=== PATIENT | female | born 1945 | race Caucasian/White ===

== ENCOUNTER 2017-09-19 15:16 | Emergency (ER) | payer MEDICARE ==
[~2017-09-19] VITALS: Ht 167.6 cm; Wt 54.4 kg
[~2017-09-19 15:16] MED LIST: ALBU90OI61 INH; ATOR10 PO; CALPHO600; Cleocin HCl300 MG PO; DOCCAL240 PO; Flovent 220 Ora12 GM INH; GABA300 PO; Humalog Mi100 UNIT/4 SC; K-Dur20 MEQ PO; LEVFLO500; METR500 PO; MIRT30 PO; MULVITMINF; Norco 5-325 Ta1 EACH PO; PRED20 PO; RXTRAM50 PO; STIOLTO RESPIMAT4 GM INH; SULTRIDS PO; TOUJEO SOL300 UNIT/1 SC; [UNRECOGNIZED DRUG - OTHER]
[2017-09-19] MEDS ORDERED: NAPR220 PO (15:30)
[2017-09-19 16:37] LABS: Hematocrit 46.6 % (33.0-51.0); Hemoglobin 16.3 g/dL (11.5-16.0); Mean Corpuscular HGB 32.9 pg (26.0-34.0); Platelet Count 247 K/mm3 (150-400); RDW Coefficient Variation 11.5 % (11.7-14.2); RDW Standard Deviation 39.7 fL (35.1-46.3); Red Blood Cell Count 4.96 M/mm3 (3.80-5.20); White Blood Cell Count 7.61 K/mm3 (4.00-11.30)
[2017-09-19 16:38] LABS: Mean Corpuscular Volume 94 fL (80-100)
[2017-09-19 16:58] LABS: BASOPHILS ABSOLUTE MAN 0.07 K/mm3 (0.00-0.23); BASOPHILS PERCENT MAN 1 % (0-2); EOSINOPHILS PERCENT MAN 0 % (0-6); LYMPHOCYTES % ATYPICAL MANUAL 4 % (0-0); LYMPHOCYTES ABSOLUTE MAN 1.59 K/mm3 (0.84-5.20); LYMPHOCYTES PERCENT MAN 17 % (21-46); MONOCYTES PERCENT MAN 4 % (4-13); NEUTROPHILS ABSOLUTE MAN 5.63 K/mm3 (1.96-9.15); SEG NEUTROPHILS PERCENT MAN 74 % (41-73); TOTAL CELLS COUNTED 100
[2017-09-19 17:07] LABS: Alanine Aminotransfer (ALT/SGP 17 U/L (12-78); Albumin, Blood 3.8 g/dL (3.4-5.0); Albumin/Globulin Ratio 1.3 (0.8-1.8); Alk Phos 88 U/L (50-136); Anion Gap 7 mmol/L (6-16); Aspartate Aminotrans (AST/SGOT 11 U/L (12-37); Bilirubin, Total 0.7 mg/dL (0.1-1.0); Blood Urea Nitrogen 13 mg/dL (8-24); Bun/Creatinine Ratio 20.5 (12.0-20.0); CO2, Blood 27 mmol/L (21-32); Calcium, Blood 8.9 mg/dL (8.5-10.1); Chloride, Blood 100 mmol/L (98-108); Creatinine, Blood 0.63 mg/dL (0.40-1.00); Glomerular Filtration Rate >60 (60-); Glucose, Blood 380 mg/dL (70-99); Potassium, Blood 4.1 mmol/L (3.5-5.5); Sodium, Blood 134 mmol/L (136-145); Total Protein, Blood 6.8 g/dL (6.4-8.2)
[2017-09-19] MEDS ORDERED: Norco 5-325 Ta1 EACH PO (18:15)
[2018-07-13] MEDS ORDERED: Norco 5-325 Ta1 EACH PO (04:10)
[2018-07-18] MEDS ORDERED: HYDR1TAB94 PO (15:11)
[2018-07-18] MEDS ORDERED: Omeprazole20 M1 PO (15:13)
[2018-07-18] MEDS ORDERED: ONDA4ODT MM (15:13)
== END 2017-09-19 18:29 | disposition home or self-care (01) ==
LOC: ER 15:16
PROVIDERS: Emergency Medicine
DX: M41.9 Scoliosis, unspecified (principal); T50.905A Adverse effect of unspecified drugs, medicaments and biological substances, initial encounter; E11.9 Type 2 diabetes mellitus without complications; M79.1 Myalgia; E78.5 Hyperlipidemia, unspecified; Z87.01 Personal history of pneumonia (recurrent); F17.210 Nicotine dependence, cigarettes, uncomplicated
CPT/HCPCS: 71046; 80053; 83735; 85007; 85027; 93005; 93010; 96361; 96374; 96375; 99283; J1170; J1885; J2405; J7030

== ENCOUNTER 2017-12-15 13:03 | Emergency (ER) | payer MEDICARE ==
[~2017-12-15] VITALS: Ht 170.2 cm; Wt 59.4 kg
[~2017-12-15 13:03] MED LIST changes: +Humalog Mi100 UNIT/4; -Humalog Mi100 UNIT/4 SC; +NAPR220 PO; +TOUJEO SOL300 UNIT/1; -TOUJEO SOL300 UNIT/1 SC
[2017-12-15] MEDS ORDERED: CYCL10 PO (14:20)
== END 2017-12-15 14:43 | disposition home or self-care (01) ==
LOC: ER 13:03
DX: M54.31 Sciatica, right side (principal); M62.838 Other muscle spasm; E11.9 Type 2 diabetes mellitus without complications; F17.210 Nicotine dependence, cigarettes, uncomplicated; Z79.4 Long term (current) use of insulin
CPT/HCPCS: 96372; 99283; J1885

== ENCOUNTER → 2017-12-23 | Outpatient (CLI) | payer MEDICARE ==
[~2017-12-23] MED LIST changes: +CYCL10 PO; +Norco 10-325 T1 EACH PO
== END | disposition home or self-care (01) ==
LOC: LAB EV 13:56 → LAB SHORT 13:56
DX: N39.0 Urinary tract infection, site not specified (principal)
CPT/HCPCS: 87086; 87147

== ENCOUNTER 2017-12-26 00:15 | Emergency (ER) | payer MEDICARE ==
[~2017-12-26] VITALS: Ht 167.6 cm; Wt 54.4 kg
[~2017-12-26 00:15] MED LIST changes: -Norco 10-325 T1 EACH PO
[2017-12-27] MEDS ORDERED: Norco 10-325 T1 EACH PO (15:56)
== END 2017-12-26 01:58 | disposition home or self-care (01) ==
LOC: ER 00:15
DX: S20.212A Contusion of left front wall of thorax, initial encounter (principal); W01.198A Fall on same level from slipping, tripping and stumbling with subsequent striking against other object, initial encounter; Z79.4 Long term (current) use of insulin; Z79.899 Other long term (current) drug therapy; E11.9 Type 2 diabetes mellitus without complications; F17.210 Nicotine dependence, cigarettes, uncomplicated
CPT/HCPCS: 99282

== ENCOUNTER 2017-12-27 15:04 | Emergency (ER) | payer MEDICARE ==
[~2017-12-27] VITALS: Ht 167.6 cm; Wt 5.9 kg
[2017-12-27] MEDS ORDERED: Norco 10-325 T1 EACH PO (15:56)
== END 2017-12-27 16:37 | disposition home or self-care (01) ==
LOC: ER 15:04
DX: S20.212A Contusion of left front wall of thorax, initial encounter (principal); W19.XXXA Unspecified fall, initial encounter; Z79.4 Long term (current) use of insulin; Z79.899 Other long term (current) drug therapy; E11.9 Type 2 diabetes mellitus without complications; F17.210 Nicotine dependence, cigarettes, uncomplicated
CPT/HCPCS: 99283

== ENCOUNTER → 2018-07-17 | Outpatient (CLI) | payer MEDICARE ==
[~2018-07-17] MED LIST changes: +HYDR1TAB94 PO; -Humalog Mi100 UNIT/4; +Humalog Mi100 UNIT/4 SC; +Norco 10-325 T1 EACH PO; +ONDA4ODT MM; +Omeprazole20 M1 PO; -TOUJEO SOL300 UNIT/1; +TOUJEO SOL300 UNIT/1 SC
[2018-07-17 17:31] LABS: BASOPHILS ABSOLUTE AUTO 0.01 K/mm3 (0.00-0.23); BASOPHILS PERCENT AUTO 0 % (0-2); EOSINOPHILS ABSOLUTE AUTO 0.04 K/mm3 (0.00-0.68); EOSINOPHILS PERCENT AUTO 1 % (0-6); Hematocrit 44.6 % (33.0-51.0); IMMATURE GRAN ABSOLUTE AUTO 0.06 K/mm3 (0.00-0.10); IMMATURE GRAN PERCENT AUTO 1 % (0-1); LYMPHOCYTES ABSOLUTE AUTO 1.45 K/mm3 (0.84-5.20); LYMPHOCYTES PERCENT AUTO 26 % (21-46); MONOCYTES ABSOLUTE AUTO 0.82 K/mm3 (0.16-1.47); MONOCYTES PERCENT AUTO 15 % (4-13); Mean Corpuscular HGB 33.4 pg (26.0-34.0); Mean Corpuscular HGB Conc 35.9 g/dL (31.5-36.5); Mean Platelet Volume 12.6 fL (9.1-12.4); NEUTROPHILS ABSOLUTE AUTO 3.16 K/mm3 (1.96-9.15); NEUTROPHILS PERCENT AUTO 57 % (41-73); Platelet Count 128 K/mm3 (150-400); RDW Coefficient Variation 11.9 % (11.7-14.2); RDW Standard Deviation 41.1 fL (35.1-46.3); Red Blood Cell Count 4.79 M/mm3 (3.80-5.20); White Blood Cell Count 5.54 K/mm3 (4.00-11.30)
[2018-07-17 17:32] LABS: Mean Corpuscular Volume 93 fL (80-100)
[2018-07-17 17:38] LABS: Bun/Creatinine Ratio 21.8 (12.0-20.0); Calcium, Blood 9.1 mg/dL (8.5-10.1); Creatinine, Blood 1.33 mg/dL (0.40-1.00)
== END | disposition home or self-care (01) ==
LOC: LAB SHORT 17:26 → LAB EV 17:26
PROVIDERS: Emergency Medicine
DX: R11.2 Nausea with vomiting, unspecified (principal)
CPT/HCPCS: 80048; 85025

== ENCOUNTER 2018-08-12 08:30 | Emergency (ER) | payer MEDICARE ==
[~2018-08-12] VITALS: Ht 167.6 cm; Wt 55.3 kg
[2018-08-12 09:00] LABS: BASOPHILS ABSOLUTE AUTO 0.05 K/mm3 (0.00-0.23); BASOPHILS PERCENT AUTO 1 % (0-2); EOSINOPHILS ABSOLUTE AUTO 0.16 K/mm3 (0.00-0.68); EOSINOPHILS PERCENT AUTO 2 % (0-6); Hematocrit 47.5 % (33.0-51.0); Hemoglobin 15.8 g/dL (11.5-16.0); IMMATURE GRAN ABSOLUTE AUTO 0.03 K/mm3 (0.00-0.10); IMMATURE GRAN PERCENT AUTO 0 % (0-1); LYMPHOCYTES PERCENT AUTO 23 % (21-46); MONOCYTES ABSOLUTE AUTO 0.66 K/mm3 (0.16-1.47); MONOCYTES PERCENT AUTO 9 % (4-13); Mean Corpuscular HGB 32.7 pg (26.0-34.0); Mean Corpuscular HGB Conc 33.3 g/dL (31.5-36.5); Mean Corpuscular Volume 98 fL (80-100); Mean Platelet Volume 11.5 fL (9.1-12.4); NEUTROPHILS ABSOLUTE AUTO 4.76 K/mm3 (1.96-9.15); NEUTROPHILS PERCENT AUTO 65 % (41-73); Platelet Count 184 K/mm3 (150-400); RDW Coefficient Variation 11.9 % (11.7-14.2); RDW Standard Deviation 43.1 fL (35.1-46.3); Red Blood Cell Count 4.83 M/mm3 (3.80-5.20); White Blood Cell Count 7.36 K/mm3 (4.00-11.30)
[2018-08-12 09:12] LABS: Alanine Aminotransfer (ALT/SGP 18 U/L (12-78); Albumin, Blood 3.8 g/dL (3.4-5.0); Albumin/Globulin Ratio 1.1 (0.8-1.8); Alk Phos 91 U/L (50-136); Anion Gap 8 mmol/L (6-16); Aspartate Aminotrans (AST/SGOT 16 U/L (12-37); Bilirubin, Total 0.6 mg/dL (0.1-1.0); Blood Urea Nitrogen 19 mg/dL (8-24); Bun/Creatinine Ratio 31.2 (12.0-20.0); CO2, Blood 27 mmol/L (21-32); Calcium, Blood 8.8 mg/dL (8.5-10.1); Chloride, Blood 104 mmol/L (98-108); Creatinine, Blood 0.61 mg/dL (0.40-1.00); Globulin, Blood 3.4 g/dL (2.2-4.0); Glomerular Filtration Rate >60 (60-); Glucose, Blood 274 mg/dL (70-99); Potassium, Blood 4.1 mmol/L (3.5-5.5); Sodium, Blood 139 mmol/L (136-145); Total Protein, Blood 7.2 g/dL (6.4-8.2)
[2018-08-12 11:21] LABS: Source, Urine Clean Catch
[2018-08-12 11:24] LABS: Appearance, Urine Clear (Clear); Bilirubin, Urine Neg (Neg); Blood, Urine Neg (Neg); Color, Urine Yellow (P-Yellow); Glucose Qualitative, Urine 4+ (Neg); Ketones, Urine 2+ (Neg); Leukocyte Esterase, Urine 1+ (Neg); Nitrite, Urine Neg (Neg); Protein, Urine Neg (Neg); Specific Gravity, Urine 1.015 (1.003-1.022); Urobilinogen, Urine NORM (Normal); pH, Urine 6.5 (5.0-8.0)
[2018-08-12 11:47] LABS: White Blood Cells, Urine 0-2 /hpf (0-5)
[2018-08-12 11:48] LABS: Bacteria Not Seen /hpf; Red Blood Cells, Urine Not Seen /hpf (0-2); Squamous Epithelial Cells Mod /hpf (Few)
== END 2018-08-12 12:45 | disposition home or self-care (01) ==
LOC: ER 08:30
PROVIDERS: Physician Assistant
DX: K59.00 Constipation, unspecified (principal); E11.9 Type 2 diabetes mellitus without complications; F17.210 Nicotine dependence, cigarettes, uncomplicated; Z90.710 Acquired absence of both cervix and uterus
CPT/HCPCS: 36415; 74176; 80053; 81001; 83690; 85025; 87086; 96361; 96374; 96375; 99284-25; J1170; J2405; J7120

== ENCOUNTER → 2019-12-04 | Outpatient (CLI) | payer MEDICARE | END | disposition home or self-care (01) | LOC: LAB SHORT 09:45 → LAB EV 09:45 | DX: R30.0 Dysuria (principal) | CPT/HCPCS: 87077; 87086; 87186 ==

== ENCOUNTER 2020-01-31 17:14 | Inpatient (IN) | payer MEDICARE ==
[~2020-01-31] VITALS: Ht 170.2 cm; Wt 50.3 kg
[~2020-01-31 17:14] MED LIST changes: -ATOR20 PO; -Aspir 8181 MG PO; -DEXA4 PO; -Hydrocodone-Ap1 EA23 PO; -INSULIN LI100 UNIT/6 SC; -NITR.4SL SL; -Revlimid10 MG PO; -TOUJEO SOL300 UNIT/2 SC
[2020-01-31 18:06] LABS: International Normalized Ratio 0.95; Prothrombin Time Results 10.2 Sec (9.7-11.5)
[2020-01-31 18:08] LABS: Magnesium, Blood 1.8 mg/dL (1.6-2.4); Phosphorus, Blood 2.4 mg/dL (2.5-4.9)
[2020-01-31] MEDS ORDERED: Revlimid10 MG PO (18:09)
[2020-01-31] MEDS ORDERED: INSULIN LI100 UNIT/6 SC (18:11)
[2020-01-31] MEDS ORDERED: DEXA4 PO (18:30)
[2020-01-31] MEDS ORDERED: NAPR220 PO (18:31)
[2020-01-31] MEDS ORDERED: TOUJEO SOL300 UNIT/2 SC (18:37)
--- NOTE | 2020-01-31 21:10 | NUR ---
ASSUMED CARE RECEIEVED REPORT FROM DEMOLITION EXPERT. PT IS ALERT AND ORIENTED X 4, AND DENIES CP, SOB, AND NAUSEA. STABLE VITALS. SHE IS ON TELLY, SINUS RHYTHM. BED LOW AND LOCKED. CALL LIGHT WITHIN REACH.
--- NOTE | 2020-02-01 00:28 | NUR ---
UPDATE PT CONTINUES TO DENY CP, SOB, AND NAUSEA. HER ONLY COMPLAINT IS A THROBBING/ACHING PAIN IN HER LEFT THIGH. SHE STATES SHE GETS THIS AT HOME AFTER NOT MOVING FOR PERIODS OF TIME, SHE SAYS ITS "BONE PAIN" THAT USUALLY GETS BETTER WHEN SHE STANDS UP. I GAVE HER TYLENOL AND HAD HER STAND UP WITH THE WALKER, SHES A LITTLE WEAK BUT FAIRLY STEADY - SHE STATES SOME RELIEF.
[2020-02-01 02:02] LABS: BASOPHILS ABSOLUTE AUTO 0.04 K/mm3 (0.00-0.23); BASOPHILS PERCENT AUTO 1 % (0-2); EOSINOPHILS ABSOLUTE AUTO 0.18 K/mm3 (0.00-0.68); EOSINOPHILS PERCENT AUTO 5 % (0-6); Hematocrit 32.3 % (33.0-51.0); IMMATURE GRAN ABSOLUTE AUTO 0.02 K/mm3 (0.00-0.10); IMMATURE GRAN PERCENT AUTO 1 % (0-1); LYMPHOCYTES ABSOLUTE AUTO 1.65 K/mm3 (0.84-5.20); LYMPHOCYTES PERCENT AUTO 42 % (21-46); MONOCYTES ABSOLUTE AUTO 0.49 K/mm3 (0.16-1.47); MONOCYTES PERCENT AUTO 13 % (4-13); Mean Corpuscular HGB 35.7 pg (26.0-34.0); Mean Corpuscular HGB Conc 34.1 g/dL (31.5-36.5); NEUTROPHILS ABSOLUTE AUTO 1.54 K/mm3 (1.96-9.15); NEUTROPHILS PERCENT AUTO 39 % (41-73); Platelet Count 128 K/mm3 (150-400); RDW Coefficient Variation 13.7 % (11.7-14.2); RDW Standard Deviation 52.2 fL (35.1-46.3); Red Blood Cell Count 3.08 M/mm3 (3.80-5.20); White Blood Cell Count 3.92 K/mm3 (4.00-11.30)
[2020-02-01 02:05] LABS: Mean Corpuscular Volume 105 fL (80-100)
[2020-02-01 02:22] LABS: Anion Gap 5 mmol/L (6-16); Blood Urea Nitrogen 19 mg/dL (8-24); Bun/Creatinine Ratio 26.5 (12.0-20.0); CO2, Blood 29 mmol/L (21-32); Calcium, Blood 7.8 mg/dL (8.5-10.1); Chloride, Blood 101 mmol/L (98-108); Creatinine, Blood 0.72 mg/dL (0.40-1.00); Glomerular Filtration Rate >60 (60-); Glucose, Blood 341 mg/dL (70-99); Phosphorus, Blood 4.3 mg/dL (2.5-4.9); Potassium, Blood 3.7 mmol/L (3.5-5.5); Sodium, Blood 135 mmol/L (136-145)
--- NOTE | 2020-02-01 05:30 | NUR ---
SHIFT SUMMARY NO ACUTE EVENTS OVERNIGHT. PT REMAINS ALERT AND ORIENTED X 4. SHE CONTINUES TO DENY CP, SOB AND NAUSEA WHEN AWAKE. VITALS ARE STABLE, AND SHE REMAINS IN SINUS RHYTHM. HER TROPONIN BUMPED UP A TINY BIT MORE WITH 1.71. SHE HAS BEEN NPO SINCE MIDNIGHT - AWAITING CARDIO CONSULT AND POTENTIALLY POLICY CHANGE CLERKS SUPERVISOR PROCEDURE THIS MORNING/DAY. SHE HAS BEEN COMPLAINING OF AN ACHE IN HER LEFT THIGH. SHE STATES THAT SHE GETS THIS PAIN AT HOME AND SHE WILL STAND UP TO RELIEVE IT. I GOT HER UP AND GAVE HER TYLENOL WHICH HELPED. SHE IS CURRENTLY ON A HEPERAIN GTTP INFUSING AT 15 UNITS/KG/HR (TITRATED UP PER PHARMACY OVERNIGHT) WITH A DOSING WEIGHT OF 49 KG. SHE IS ALSO ON NS @ 100 ML/HR AFTER HER SODIUM PHOS FINISHED INFUSING. BED LOW AND LOCKED. CALL LIGHT WITHIN REACH. ADMIT IS COMPLETED, MEDS ARE COMPLETED - HER CHEMO MED HAS BEEN VERIFIED BY PHARMACY AND IS IN THE CABINET NEAR HER ROOM.
--- NOTE | 2020-02-01 06:02 | NUR ---
CBG/INSULIN SLIDING SCALE PT HAS ORDERS FOR Q6H CBG CHECKS, BUT THE INSULIN SLIDING SCALE WAS AC & HS, SO I WENT AHEAD AND CHANGED MIKE SLIDING SCALE TO Q6H FOR NOW, DUE TO PT STILL BEING NPO. THIS CAN CHANGE ALONG WITH THE FREQUENCY OF CBG CHECKS TO AC & HS WHEN PT IS PUT ON A DIET.
--- NOTE | 2020-02-01 17:21 | NUR ---
PCU DAYSHIFT SUMMARY PATIENT ALERT AND ORIENTED X4 T/O SHIFT. PATIENT RESTFUL AND INDEPENDENT/MINIMAL STANDBY ASSIST IN ROOM. PATIENT REMAINS ON OXYMIZER AT 3.5 LPM. LUNG SOUNDS COURSE T/O, RESPIRATIONS E/U AT REST - LABORED AND UNEVEN - PATIENT USES PIERCED LIP BREATHING FOR RECOVERY. PATIENT DOSE TAKE HIS OXYGEN OFF TO EAT AND PERIODICALLY T/O DAY - PATIENT EDUCATED TO HYPOXIA AND SOB - VERBALIZED THAT HE 'IS FINE'. PATIENT USES OXYGEN AT HOME, HAS HOME CONCENTRATOR AND PORTABLE OXYGEN TANK (PULSE). NO ACUTE CHANGES NOTED THIS SHIFT. PATIENT IS PALE, WEAK AND REMAINS IN PCU AWAITING ONCOLOGY CONSULT FOR MONDAY WITH MD MURRAY WHO IS OUT OF TOWN UNTIL MONDAY. PATIENT REMAINS IN AFIB - RATE 90-120'S. WILL CONTINUE TO MONITOR AND REPORT TO NOC SHIFT RN.
--- NOTE | 2020-02-01 17:30 | NUR ---
PCU DAYSHIFT SUMMARY PATIENT ALERT AND ORIENTED TO SELF, LOCATION AND TIME/DATE. 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 RESP E/U ON ROOM AIR. PATIENT REMAINS IN NSR. PATIENT DENIES ANY CHEST PAIN. MEDICATED FOR CHRONIC ONGOING PAIN. HEPARIN GTT RUNNING PER EMAR - BOLUS DOSE GIVEN X2 WITH TITRATION THIS SHIFT. PATIENT HAS AC HS CBG'S - TREATED PER SLIDING SCALE. MD AHUMADA TO ROOM - PATIENT VERBALIZES THAT SHE IS UNSURE IF SHE WOULD LIKE ANY CARDIAC INTERVENTION AND DOES NOT WANT TO MAKE A DECISION AT THIS TIME - SHE JUST WANTED TO EAT - MD AHUMADA SAID HE WOULD BE BACK TO [facility] IN AM. PATIENT DNR, PURPLE WRISTBAND IN PLACE. WILL CONTINUE TO MONITOR AND REPORT TO NOC SHIFT RN.
--- NOTE | 2020-02-02 05:15 | NUR ---
SHIFT SUMMARY PATIENT SLEPT WELL THROUGH NIGHT. ADJUSTED HEPARIN DRIP PER PHARMACY, SEE EMAR. GAVE PAIN MEDS FOR NEUROPATHIC PAIN, SEE EMAR. NO ACUTE CHANGES OVERNIGHT. ASSESSMENT IS CHARTED. VSS. PAIN WELL CONTROLLED. WILL CONTINUE TO MONITOR.
[2020-02-02 10:22] LABS: BASOPHILS ABSOLUTE AUTO 0.06 K/mm3 (0.00-0.23); BASOPHILS PERCENT AUTO 2 % (0-2); EOSINOPHILS ABSOLUTE AUTO 0.19 K/mm3 (0.00-0.68); EOSINOPHILS PERCENT AUTO 6 % (0-6); Hematocrit 32.2 % (33.0-51.0); Hemoglobin 10.7 g/dL (11.5-16.0); IMMATURE GRAN ABSOLUTE AUTO 0.01 K/mm3 (0.00-0.10); IMMATURE GRAN PERCENT AUTO 0 % (0-1); LYMPHOCYTES PERCENT AUTO 50 % (21-46); MONOCYTES ABSOLUTE AUTO 0.43 K/mm3 (0.16-1.47); MONOCYTES PERCENT AUTO 13 % (4-13); Mean Corpuscular HGB 36.1 pg (26.0-34.0); Mean Corpuscular HGB Conc 33.2 g/dL (31.5-36.5); Mean Platelet Volume 11.6 fL (9.1-12.4); NEUTROPHILS ABSOLUTE AUTO 1.03 K/mm3 (1.96-9.15); NEUTROPHILS PERCENT AUTO 30 % (41-73); Platelet Count 138 K/mm3 (150-400); RDW Standard Deviation 54.8 fL (35.1-46.3); Red Blood Cell Count 2.96 M/mm3 (3.80-5.20); White Blood Cell Count 3.42 K/mm3 (4.00-11.30)
[2020-02-02 10:29] LABS: Mean Corpuscular Volume 109 fL (80-100)
[2020-02-02 10:35] LABS: Alanine Aminotransfer (ALT/SGP 22 U/L (12-78); Albumin, Blood 2.2 g/dL (3.4-5.0); Albumin/Globulin Ratio 0.5 (0.8-1.8); Alk Phos 57 U/L (50-136); Anion Gap 6 mmol/L (6-16); Aspartate Aminotrans (AST/SGOT 17 U/L (12-37); Bilirubin, Total 0.3 mg/dL (0.1-1.0); Blood Urea Nitrogen 16 mg/dL (8-24); Bun/Creatinine Ratio 24.9 (12.0-20.0); CO2, Blood 26 mmol/L (21-32); Calcium, Blood 8.2 mg/dL (8.5-10.1); Chloride, Blood 106 mmol/L (98-108); Creatinine, Blood 0.64 mg/dL (0.40-1.00); Globulin, Blood 4.3 g/dL (2.2-4.0); Glomerular Filtration Rate >60 (60-); Glucose, Blood 156 mg/dL (70-99); Potassium, Blood 3.6 mmol/L (3.5-5.5); Sodium, Blood 138 mmol/L (136-145); Total Protein, Blood 6.5 g/dL (6.4-8.2)
[2020-02-02] MEDS ORDERED: Aspir 8181 MG PO (13:44)
[2020-02-02] MEDS ORDERED: ATOR20 PO (13:45)
[2020-02-02] MEDS ORDERED: NITR.4SL SL (13:47)
[2020-02-02] MEDS ORDERED: Hydrocodone-Ap1 EA23 PO (13:49)
--- NOTE | 2020-02-02 15:01 | NUR ---
DISCHARGE HOME PT DISCHARGE HOME VIA W/C ACCOMPANIED BY [facility]. PERSCRIPTIONS FAXED TO [facility] PER PT REQUEST. RETURNED PT HOME MEDICATIONS. CONTINUE POT.
--- NOTE | 2020-02-02 15:12 | NUR ---
PCU DISCHARGE SUMMARY PATIENT DENIED ANY CHEST PAIN T/O SHIFT. CARDIOLOGY IN TO SEE PATIENT (ZITA) PATIENT VERBALIZED THAT SHE WOULD SEAK OUT HOSPICE FOR MANAGING PAIN. PATIENT ALSO VERBALIZED THAT SHE FELT READY TO D/C HOME. NSR ON ROOM AIR T/O SHIFT. NO ACUTE DISTRESS NOTED. INDEPENDENT IN ROOM.
== END 2020-02-02 14:55 | disposition home or self-care (01) | DRG 280 ==
LOC: ER 17:14 → PCU 17:15
PROVIDERS: Emergency Medicine; Internal Medicine; Nurse Practitioner Acute Care; Physician Assistant; ADMIT Internal Medicine
DX: I21.4 Non-ST elevation (NSTEMI) myocardial infarction (principal); D61.810 Antineoplastic chemotherapy induced pancytopenia; C90.00 Multiple myeloma not having achieved remission; N17.9 Acute kidney failure, unspecified; E44.0 Moderate protein-calorie malnutrition; Z68.1 Body mass index [BMI] 19.9 or less, adult; E86.0 Dehydration; E11.65 Type 2 diabetes mellitus with hyperglycemia; E78.5 Hyperlipidemia, unspecified; E83.39 Other disorders of phosphorus metabolism; Z66 Do not resuscitate; F17.200 Nicotine dependence, unspecified, uncomplicated; Z92.21 Personal history of antineoplastic chemotherapy; Z79.4 Long term (current) use of insulin
CPT/HCPCS: 36415; 80048; 80053; 82947; 83735; 83880; 84100; 84484; 85025; 85610; 85730; 93005; 93010; 93306; 96365; 96368; 96376; 99285-25; A9270; A9270-GY; J1644; J7030; J7060

== ENCOUNTER → 2020-01-31 | Outpatient (CLI) | payer MEDICARE ==
[~2020-01-31] MED LIST changes: +ATOR20 PO; +Aspir 8181 MG PO; +DEXA4 PO; +Hydrocodone-Ap1 EA23 PO; +INSULIN LI100 UNIT/6 SC; +NITR.4SL SL; +Revlimid10 MG PO; -TOUJEO SOL300 UNIT/1 SC; +TOUJEO SOL300 UNIT/2 SC
[2020-01-31 16:23] LABS: BASOPHILS ABSOLUTE AUTO 0.04 K/mm3 (0.00-0.23); BASOPHILS PERCENT AUTO 1 % (0-2); EOSINOPHILS PERCENT AUTO 3 % (0-6); Hematocrit 37.7 % (33.0-51.0); IMMATURE GRAN ABSOLUTE AUTO 0.01 K/mm3 (0.00-0.10); IMMATURE GRAN PERCENT AUTO 0 % (0-1); LYMPHOCYTES ABSOLUTE AUTO 1.35 K/mm3 (0.84-5.20); LYMPHOCYTES PERCENT AUTO 38 % (21-46); MONOCYTES ABSOLUTE AUTO 0.35 K/mm3 (0.16-1.47); MONOCYTES PERCENT AUTO 10 % (4-13); Mean Corpuscular HGB 35.3 pg (26.0-34.0); Mean Corpuscular HGB Conc 34.5 g/dL (31.5-36.5); Mean Corpuscular Volume 102 fL (80-100); Mean Platelet Volume 11.1 fL (9.1-12.4); NEUTROPHILS ABSOLUTE AUTO 1.68 K/mm3 (1.96-9.15); NEUTROPHILS PERCENT AUTO 48 % (41-73); Platelet Count 167 K/mm3 (150-400); RDW Coefficient Variation 13.9 % (11.7-14.2); RDW Standard Deviation 52.6 fL (35.1-46.3); Red Blood Cell Count 3.68 M/mm3 (3.80-5.20); White Blood Cell Count 3.53 K/mm3 (4.00-11.30)
[2020-01-31 16:47] LABS: Albumin, Blood 3.2 g/dL (3.4-5.0); Albumin/Globulin Ratio 0.6 (0.8-1.8); Bilirubin, Total 0.8 mg/dL (0.1-1.0); Bun/Creatinine Ratio 17.7 (12.0-20.0); Calcium, Blood 8.7 mg/dL (8.5-10.1); Creatinine, Blood 1.13 mg/dL (0.40-1.00); Globulin, Blood 5.6 g/dL (2.2-4.0); Potassium, Blood 4.2 mmol/L (3.5-5.5); Thyroid Stimulating Hormone 0.745 uIU/mL (0.360-4.800); Total Protein, Blood 8.8 g/dL (6.4-8.2)
[2020-01-31 16:52] LABS: Troponin I 1.253 ng/mL (0.000-0.040)
== END | disposition home or self-care (01) ==
LOC: LAB SHORT 16:10 → LAB EV 16:10
PROVIDERS: Physician Assistant Surgical
DX: R06.02 Shortness of breath (principal); R53.83 Other fatigue; R20.2 Paresthesia of skin
CPT/HCPCS: 80053; 82607; 84443; 84484; 85025